=== PATIENT | female | born 1980 | race Caucasian/White ===

== ENCOUNTER 2016-07-29 20:09 | Emergency (ER) | payer MEDICAID ==
[~2016-07-29 20:09] MED LIST: ADVIL200 M3 PO; ALBUTEROL0.63 MG/1 INH; ALBUTEROL0.83 MG/ML INH; ALBUTEROL17 GM; ALBUTEROL2.5 MG/0.1 IH; AMOXICILLIN875 M1 PO; AMOXICILLIN875 MG PO; CLINDAMYCIN HC300 MG PO; COLACE100 MG PO; DAILY INHALER; LEVOFLOXACIN750 MG PO; MEDROL4 MG/DOSE- PO; MUCINEX600 M1 PO; NORCO 5/325 TAB1 TAB PO; PREDNISONE10 M1 PO; PRENATAL1 TAB; PRIMATENE MIS; TYLENOL W/CODEI1 TAB PO; VENTOLIN HFA18 G1 IH; ZITHROMAX250 M1 PO; ZITHROMAX250MG Z-PAK PO
[2016-07-29] MEDS ORDERED: PROVENTIL HFA6.7 G1 IH (21:04)
[2016-07-29] MEDS ORDERED: ACETAMINOPHEN-CO5 M1 PO (21:04)
[2016-11-04] MEDS ORDERED: PROAIR HFA8.5 GM INH (21:48)
[2016-11-04] MEDS ORDERED: QVAR8.7 G1 INH (21:48)
[2016-12-10] MEDS ORDERED: PROAIR HFA8.5 GM INH (21:34)
== END 2016-07-29 21:23 ==
LOC: EDMED 20:09
DX: J45.909 Unspecified asthma, uncomplicated (principal); Z76.0 Encounter for issue of repeat prescription; Z98.890 Other specified postprocedural states; Z79.51 Long term (current) use of inhaled steroids; F17.200 Nicotine dependence, unspecified, uncomplicated